=== PATIENT | female | born 1965 | race Caucasian/White ===

== ENCOUNTER 2017-08-26 09:15 | Emergency (ER) | payer OTHER ==
[~2017-08-26] VITALS: Ht 165.1 cm; Wt 107.5 kg
[2017-08-26] MEDS ORDERED: MORPHINE SULFATE 4 MG/ML SYR IV STA (09:55)
[2017-08-26] MEDS ORDERED: SODIUM CHLORIDE 0.9% 1000ML 1,000 ML IV STA (09:55)
[2017-08-26] MEDS ORDERED: ONDANSETRON HCL 4 MG ORAL DISINTEGRATING TAB PO ONE (10:00)
[2017-08-26] MEDS ORDERED: MORPHINE SULFATE 2 MG/ML SYR ONE (10:03)
[2017-08-26 10:06] LABS: BASOPHILS # (AUTO) 0.1 (0.0-0.1); BASOPHILS % 1.2 % (0.0-1.0); EOSINOPHILS # (AUTO) 0.2 (0.0-0.4); EOSINOPHILS % 2.3 % (0.0-6.0); HEMATOCRIT 40.5 % (34.2-44.1); HEMOGLOBIN 13.1 g/dL (12.0-16.0); LYMPHOCYTES # (AUTO) 1.4 (1.0-3.2); LYMPHOCYTES % 18.5 % (18.0-39.1); MEAN CORPUSCULAR HEMOGLOBIN 29.4 pg (28-32); MEAN CORPUSCULAR HGB CONC 32.3 g/dL (31-35); MEAN CORPUSCULAR VOLUME 90.8 fL (81-99); MONOCYTES # (AUTO) 0.6 (0.2-0.8); MONOCYTES % 7.9 % (4.4-11.3); NEUTROPHILS # (AUTO) 5.3 (2.1-6.9); NEUTROPHILS % 68.7 % (38.7-80.0); PLATELET COUNT 227 x10e3/uL (140-360); RED BLOOD COUNT 4.46 x10e6/uL (3.6-5.1); RED CELL DISTRIBUTION WIDTH 14.5 % (11.7-14.4)
[2017-08-26 10:09] LABS: BILIRUBIN,URINE NEGATIVE (NEGATIVE); CLARITY,URINE CLOUDY (CLEAR); COLOR,URINE YELLOW (YELLOW); KETONES,URINE NEGATIVE (NEGATIVE); LEUKOCYTE ESTERASE ,URINE NEGATIVE (NEGATIVE); NITRITE,URINE NEGATIVE (NEGATIVE); PROTEIN,URINE DIPSTICK NEGATIVE (NEGATIVE); URINE UROBILINOGEN 0.2 mg/dL (0.2 - 1)
[2017-08-26 10:20] LABS: ALBUMIN 4.1 g/dL (3.5-5.0); ALBUMIN/GLOBULIN RATIO 1.1 (0.8-2.0); ANION GAP 12.5 mmol/L (8-16); CALCIUM 9.5 mg/dL (8.4-10.2); CREATININE, SERUM 1.08 mg/dL (0.57-1.11); POTASSIUM 3.5 mmol/L (3.5-5.1)
[2017-08-26 10:24] LABS: EPITHELIAL CELLS,URINE RARE /LPF; RBC,URINE >50 /HPF (0-5)
[2017-08-26] MEDS ORDERED: KETOROLAC TROMETHAMINE 30 MG/ML VIAL IV STA (10:26)
--- NOTE | 2017-08-26 10:29 | Diagnostic Imaging Report ---
PROCEDURE: CT ABDOMEN AND PELVIS WITHOUT CONTRAST COMPARISON:None. INDICATIONS:Right flank pain TECHNIQUE: Stone protocol Volumetric CT abdomen and pelvis. No intravenous or enteric contrast. Multiplanar reformatted images. DLP: 786.51 FINDINGS: Clear lung bases. No pleural effusions. Normal heart size. Liver: Normal Gallbladder: Cholecystectomy. The bile duct dilation. Pancreas: Normal Spleen: Normal Adrenal glands: Normal Urinary bladder: Normal Uterus and adnexa: Normal Right kidney: 0.5 x 0.4 cm stone at the distal right ureter about 4 cm from the ureterovesicular junction. Resulting mild right hydronephrosis. No additional stones. Left kidney: Nonobstructive 0.3 cm stone in the mid segment (image 68, series 301). Normal ureter. Bowel: Normal caliber. Normal appendix. Mild proximal sigmoid diverticulosis. Peritoneum: Normal Vasculature: Normal caliber Lymph nodes: Normal Skeleton: Intact. Soft tissues: Normal CONCLUSION: 1. 0.5 cm distal right ureteral stone with resulting ureteral obstruction. 2. Nonobstructive left nephrolithiasis. Dictated by: Galileo Mejia M.D. on 08/26/2017 at 10:31 Electronically approved by: Galileo Mejia M.D. on 08/26/2017 at 10:31
[2017-08-26] MEDS ORDERED: HYDROMORPHONE 1MG/1ML INJ IV STA (10:36)
[2017-08-26] MEDS ORDERED: HYDROMORPHONE 2MG/ML INJ IV NR (10:45)
[2017-08-26 12:37] VITALS: BP 128/75
== END 2017-08-26 12:00 | disposition home or self-care (01) ==
LOC: ER 09:15
DX: N13.2 Hydronephrosis with renal and ureteral calculous obstruction (principal)
CPT/HCPCS: 36415; 74176; 80053; 81001; 85025; 99284; J1170; J1885; J2270; J7030

== ENCOUNTER 2017-10-14 19:23 | Inpatient (IN) | payer OTHER ==
[~2017-10-14] VITALS: Ht 165.1 cm; Wt 106.1 kg
[2017-10-14] MEDS ORDERED: SODIUM CHLORIDE 0.9% 1000ML 1,000 ML IV STA (20:13)
[2017-10-14] MEDS ORDERED: ACETAMINOPHEN 325 MG TAB PO ONE (20:30)
[2017-10-14] MEDS ORDERED: VANCOMYCIN 1GM/NS 250 ML 250 ML IV STA (20:30)
[2017-10-14] MEDS ORDERED: CEFEPIME HCL 2 GM VIAL IV SCH (21:00)
[2017-10-14 21:43] LABS: BASOPHILS # (AUTO) 0.1 (0.0-0.1); BASOPHILS % 0.5 % (0.0-1.0); EOSINOPHILS # (AUTO) 0.1 (0.0-0.4); EOSINOPHILS % 0.7 % (0.0-6.0); HEMATOCRIT 34.1 % (34.2-44.1); HEMOGLOBIN 11.2 g/dL (12.0-16.0); LYMPHOCYTES # (AUTO) 1.2 (1.0-3.2); LYMPHOCYTES % 8.2 % (18.0-39.1); MEAN CORPUSCULAR HEMOGLOBIN 28.9 pg (28-32); MEAN CORPUSCULAR HGB CONC 32.8 g/dL (31-35); MEAN CORPUSCULAR VOLUME 87.9 fL (81-99); MONOCYTES # (AUTO) 1.3 (0.2-0.8); MONOCYTES % 8.8 % (4.4-11.3); NEUTROPHILS # (AUTO) 12.1 (2.1-6.9); NEUTROPHILS % 81.2 % (38.7-80.0); PLATELET COUNT 214 x10e3/uL (140-360); RED BLOOD COUNT 3.88 x10e6/uL (3.6-5.1); RED CELL DISTRIBUTION WIDTH 13.4 % (11.7-14.4)
[2017-10-14 21:50] LABS: CLARITY,URINE CLOUDY (CLEAR); COLOR,URINE ORANGE (YELLOW)
[2017-10-14 21:51] LABS: BACTERIA,URINE MANY /HPF; BILIRUBIN,URINE NEGATIVE (NEGATIVE); EPITHELIAL CELLS,URINE FEW /LPF; KETONES,URINE NEGATIVE (NEGATIVE); LEUKOCYTE ESTERASE ,URINE TRACE (NEGATIVE); MUCUS,URINE FEW (RARE); NITRITE,URINE POSITIVE (NEGATIVE); PROTEIN,URINE DIPSTICK 2+ (NEGATIVE); RBC,URINE 21-50 /HPF (0-5); URINE UROBILINOGEN 1 mg/dL (0.2 - 1)
[2017-10-14 21:52] LABS: INR 1.1; PROTHROMBIN TIME 13.4 seconds (11.9-14.5)
[2017-10-14 21:53] LABS: PARTIAL THROMBOPLASTIN TIME 28.1 seconds (23.8-35.5)
[2017-10-14 22:00] LABS: ALBUMIN 3.3 g/dL (3.5-5.0); ALBUMIN/GLOBULIN RATIO 0.9 (0.8-2.0); ANION GAP 13.4 mmol/L (8-16); CALCIUM 9.1 mg/dL (8.4-10.2); CREATININE, SERUM 1.22 mg/dL (0.57-1.11); MAGNESIUM 1.7 MG/DL (1.3-2.1); POTASSIUM 3.4 mmol/L (3.5-5.1)
[2017-10-14 22:19] LABS: CREATINE KINASE MB 0.4 ng/mL (0-5.0)
--- NOTE | 2017-10-14 22:51 | Diagnostic Imaging Report ---
CHEST SINGLE (PORTABLE), 10/14/2017 8:13 PM Technique: CHEST SINGLE (PORTABLE) Comparison: None available. Clinical history: Fever Findings: Mild right basilar/infrahilar opacity. Otherwise unremarkable portable appearance of the heart, mediastinum, lungs and pleural spaces. Impression: Mild right basilar/infrahilar opacity which may reflect atelectasis or developing infection. Recommend follow-up upright PA and lateral. Signed by: Dr Laura Colon MD on 10/14/2017 10:47 PM
--- NOTE | 2017-10-14 23:00 | Diagnostic Imaging Report ---
EXAM: CT ABDOMEN/PELVIS WO DATE: 10/14/2017 8:35 PM INDICATION: Fever status post stent removal, also reports burning with urination, urinalysis positive COMPARISON: None TECHNIQUE: The abdomen and pelvis were scanned using a multidetector helical scanner. Coronal and sagittal reformations were obtained. Routine protocol performed. IV Contrast: 0 ml Isovue 300/370 FINDINGS: Lack of IV contrast decreases sensitivity in evaluating abdominal and pelvic organs. LOWER THORAX: Mild right greater than left bibasilar opacity, favor atelectasis/scarring. LIVER/BILIARY: No masses. No ductal dilatation. GALLBLADDER: Not visualized SPLEEN: Unremarkable PANCREAS: Unremarkable ADRENALS: No nodules KIDNEYS: The renal parenchyma is suboptimally assessed without IV contrast. There is marked left perinephric and periureteral stranding. Mild bilateral pelvocaliectasis and ureterectasis with likely urothelial thickening. No stones. GI TRACT: No wall thickening or evidence of obstruction. VESSELS: Unremarkable PERITONEUM/RETROPERITONEUM: No free air or fluid LYMPH NODES: No lymphadenopathy REPRODUCTIVE ORGANS/BLADDER: Tiny focus of gas in the bladder which may be related to recent catheterization. SOFT TISSUES: Bilateral breast implants are noted. BONES: Multilevel degenerative changes. IMPRESSION: Somewhat degraded by lack of IV contrast Findings most compatible with left pyelonephritis given history. Bilateral pyelitis, which may be infectious and/or related to recent stent removal. Signed by: Dr Laura Colon MD on 10/14/2017 10:57 PM
[2017-10-14] MEDS ORDERED: MEROPENEM 1 GM VIAL ONE (23:40)
[2017-10-14] MEDS: MEROPENEM 1GRAM 1 GM in SODIUM CHLORIDE 0.9% 100 ML 100 ML IV SCH (23:41)
[2017-10-14] MEDS ORDERED: SODIUM CHLORIDE 0.9% 100 ML ONE (23:45)
[2017-10-15] MEDS: ONDANSETRON HCL INJ 2 MG/ML VIAL IV PRN ×3 (00:59→17:24)
[2017-10-15] MEDS: ACETAMINOPHEN 325 MG TAB PO PRN ×2 (01:04→18:33)
[2017-10-15] MEDS: SODIUM CHLORIDE 0.9% 1000ML 1,000 ML IV SCH ×3 (01:48→23:00)
[2017-10-15] MEDS: MORPHINE SULFATE 2 MG/ML SYR IV PRN ×3 (01:54→17:24)
[2017-10-15] MEDS ORDERED: IBUPROFEN 400 MG TAB PO ONE (03:15)
[2017-10-15] MEDS ORDERED: MEROPENEM 1 GM VIAL ONE ×3 (05:39→20:49)
[2017-10-15] MEDS ORDERED: SODIUM CHLORIDE 0.9% 100 ML ONE (05:40)
[2017-10-15 06:00] LABS: BASOPHILS % 0.4 % (0.0-1.0); EOSINOPHILS % 0.4 % (0.0-6.0); HEMATOCRIT 32.9 % (34.2-44.1); HEMOGLOBIN 10.5 g/dL (12.0-16.0); LYMPHOCYTES # (AUTO) 0.9 (1.0-3.2); LYMPHOCYTES % 8.8 % (18.0-39.1); MEAN CORPUSCULAR HEMOGLOBIN 28.8 pg (28-32); MEAN CORPUSCULAR HGB CONC 31.9 g/dL (31-35); MEAN CORPUSCULAR VOLUME 90.1 fL (81-99); MONOCYTES # (AUTO) 1.2 (0.2-0.8); MONOCYTES % 10.8 % (4.4-11.3); NEUTROPHILS # (AUTO) 8.5 (2.1-6.9); NEUTROPHILS % 78.9 % (38.7-80.0); PLATELET COUNT 195 x10e3/uL (140-360); RED BLOOD COUNT 3.65 x10e6/uL (3.6-5.1); RED CELL DISTRIBUTION WIDTH 13.6 % (11.7-14.4)
[2017-10-15] MEDS: MEROPENEM 1GRAM 1 GM in SODIUM CHLORIDE 0.9% 100 ML 100 ML IV SCH ×3 (06:36→21:25)
[2017-10-15 06:37] LABS: ALBUMIN 2.9 g/dL (3.5-5.0); ALBUMIN/GLOBULIN RATIO 0.8 (0.8-2.0); ANION GAP 9.5 mmol/L (8-16); CALCIUM 8.3 mg/dL (8.4-10.2); CREATININE, SERUM 1.1 mg/dL (0.57-1.11); POTASSIUM 3.5 mmol/L (3.5-5.1)
[2017-10-15] MEDS ORDERED: TYLENOL # 31 EA PO (07:01)
[2017-10-15] MEDS ORDERED: ZONISAMIDE50 MG PO (07:01)
[2017-10-15] MEDS ORDERED: OXYBUTYNIN CHLOR5 MG PO (07:01)
[2017-10-15] MEDS ORDERED: ZOFRAN ODT4 MG SL (07:01)
[2017-10-15] MEDS ORDERED: SYNTHROID100 MCG PO (07:01)
[2017-10-15] MEDS ORDERED: OXYBUTYNIN CHLORIDE 5 MG TAB PO PRN (07:45)
[2017-10-15] MEDS ORDERED: ACETAMINOPHEN/CODEINE 300MG - 30MG TAB PO PRN (07:45)
[2017-10-15] MEDS ORDERED: ONDANSETRON HCL 4 MG ORAL DISINTEGRATING TAB SL PRN (07:45)
--- NOTE | 2017-10-15 08:22 | History and Physical ---
CHIEF COMPLAINT: Vomiting, fever and recent ureteral stent removal. HISTORY OF PRESENT ILLNESS: The patient is a 52-year-old woman. She has a history of thyroid disease and recurrent kidney stones. She had bilateral stents placed by Dr. Benitez. One of the stents was removed on Friday. The next day she developed some fever. She subsequently developed vomiting and pain, and came to the emergency department. PAST SURGICAL HISTORY: Ureteral stent placement. PAST MEDICAL HISTORY 1. Recurrent nephrolithiasis. 2. Thyroid disease. SOCIAL HISTORY: The patient never smoked. The patient is not an active drinker. FAMILY HISTORY: Noncontributory. ALLERGIES: THERE ARE NO KNOWN DRUG ALLERGIES. REVIEW OF SYSTEMS: The patient does have some chronic headaches. She has no neck pain. She has no sore throat. She does not have dyspnea. She has a mild cough. She has no chest pain. She did have some nausea and vomiting. She has no leg edema. PHYSICAL EXAMINATION VITALS: The patient is afebrile. Her temperature was 102.7 last night. HEENT: Shows no facial swelling or erythema. The nasal mucosa is normal. The oropharynx is normal. LYMPHATICS: Shows no submandibular, submucosa or supraclavicular adenopathy. NECK: Shows no JVD or thyromegaly. There is no nuchal rigidity. CARDIAC: Reveals a regular rate and rhythm with normal S1 and S2. There are no murmurs or rubs. LUNGS: Auscultation reveals rhonchus breath sounds. There is no wheezing. ABDOMEN: Soft and nontender. There is no rebound or guarding. EXTREMITIES: Shows no leg edema or cellulitis. There is no cyanosis or clubbing. SKIN: Shows no rashes. NEUROLOGICAL: Shows no focal abnormalities. IMPRESSION 1. Pyelonephritis. 2. Right-sided atelectasis of the lung probably related to prior anesthesia. PLAN 1. The patient will receive IV antibiotics. 2. IV fluids and antiemetics. 3. Repeat PA and lateral chest x-ray. 4. Urology evaluation. Job#: [id number] [place]
--- NOTE | 2017-10-15 08:38 | Diagnostic Imaging Report ---
PROCEDURE: X-RAY CHEST, TWO VIEWS COMPARISON: 10/14/2017. INDICATIONS: RIGHT LUNG ATELECTASIS, ABNORMAL CXR 10/14/17 FINDINGS: The lungs are well expanded. No focal airspace consolidation, pleural effusion, or pneumothorax. Presumed subsegmental atelectasis in the right lung base has resolved. Cardiomediastinal contour and pulmonary vasculature are within normal limits. No acute osseous abnormality. Mild degenerative disc changes of the thoracic spine. CONCLUSION: No acute cardiopulmonary abnormality. Previously described right lung base airspace opacity likely represented atelectasis. Dictated by: Rafael Lomeli M.D. on 10/15/2017 at 8:42 Electronically approved by: Rafael Lomeli M.D. on 10/15/2017 at 8:42
[2017-10-15] MEDS: IBUPROFEN 400 MG TAB PO PRN ×2 (08:41→23:01)
[2017-10-15] MEDS: ZONISAMIDE 50 MG CAP PO SCH (08:46)
[2017-10-15 13:00] VITALS: BP 125/71
[2017-10-15 13:34] VITALS: BP 119/55
[2017-10-15 16:20] VITALS: BP 128/60
[2017-10-15 20:00] VITALS: BP 138/57
[2017-10-16] VITALS (9 sets, daily range): BP systolic 100–173; BP diastolic 58–77
[2017-10-16 04:45] LABS: BASOPHILS # (AUTO) 0.1 (0.0-0.1); BASOPHILS % 0.5 % (0.0-1.0); EOSINOPHILS # (AUTO) 0.1 (0.0-0.4); EOSINOPHILS % 0.9 % (0.0-6.0); HEMATOCRIT 30.5 % (34.2-44.1); HEMOGLOBIN 9.8 g/dL (12.0-16.0); LYMPHOCYTES # (AUTO) 1.3 (1.0-3.2); LYMPHOCYTES % 8.4 % (18.0-39.1); MEAN CORPUSCULAR HEMOGLOBIN 29.3 pg (28-32); MEAN CORPUSCULAR HGB CONC 32.1 g/dL (31-35); MONOCYTES # (AUTO) 1.5 (0.2-0.8); MONOCYTES % 9.6 % (4.4-11.3); NEUTROPHILS # (AUTO) 12.1 (2.1-6.9); PLATELET COUNT 189 x10e3/uL (140-360); RED BLOOD COUNT 3.35 x10e6/uL (3.6-5.1); RED CELL DISTRIBUTION WIDTH 13.4 % (11.7-14.4)
[2017-10-16 05:10] LABS: ALBUMIN 2.5 g/dL (3.5-5.0); ALBUMIN/GLOBULIN RATIO 0.7 (0.8-2.0); ANION GAP 10.8 mmol/L (8-16); CALCIUM 8.4 mg/dL (8.4-10.2); CREATININE, SERUM 1.01 mg/dL (0.57-1.11); POTASSIUM 3.8 mmol/L (3.5-5.1)
[2017-10-16] MEDS ORDERED: MEROPENEM 1 GM VIAL ONE (05:16)
[2017-10-16] MEDS: MEROPENEM 1GRAM 1 GM in SODIUM CHLORIDE 0.9% 100 ML 100 ML IV SCH (05:32)
[2017-10-16] MEDS: LEVOTHYROXINE SODIUM 100 MCG TAB PO SCH (05:32)
[2017-10-16] MEDS: ACETAMINOPHEN 325 MG TAB PO PRN ×2 (05:33→15:08)
[2017-10-16] MEDS: ONDANSETRON HCL INJ 2 MG/ML VIAL IV PRN (06:48)
[2017-10-16] MEDS: MORPHINE SULFATE 2 MG/ML SYR IV PRN (06:48)
[2017-10-16] MEDS: ZONISAMIDE 50 MG CAP PO SCH (08:37)
[2017-10-16] MEDS: MEROPENEM 1 GM VIAL IV SCH ×2 (13:37→21:35)
[2017-10-16] MEDS: SODIUM CHLORIDE 0.9% 1000ML 1,000 ML IV SCH ×2 (13:37→21:34)
[2017-10-16] MEDS ORDERED: MORPHINE SULFATE INJ 4 MG/ML INJ IV PRN (17:00)
[2017-10-16] MEDS: IBUPROFEN 400 MG TAB PO PRN (21:37)
[2017-10-17] VITALS: BP 107/64
[2017-10-17 04:00] VITALS: BP 130/67
[2017-10-17 04:43] LABS: BASOPHILS # (AUTO) 0.1 (0.0-0.1); BASOPHILS % 0.7 % (0.0-1.0); EOSINOPHILS # (AUTO) 0.2 (0.0-0.4); EOSINOPHILS % 2.2 % (0.0-6.0); HEMATOCRIT 29.3 % (34.2-44.1); HEMOGLOBIN 9.2 g/dL (12.0-16.0); LYMPHOCYTES # (AUTO) 1.5 (1.0-3.2); LYMPHOCYTES % 17.3 % (18.0-39.1); MEAN CORPUSCULAR HGB CONC 31.4 g/dL (31-35); MEAN CORPUSCULAR VOLUME 92.4 fL (81-99); MONOCYTES # (AUTO) 0.8 (0.2-0.8); MONOCYTES % 9.1 % (4.4-11.3); PLATELET COUNT 197 x10e3/uL (140-360); RED BLOOD COUNT 3.17 x10e6/uL (3.6-5.1); RED CELL DISTRIBUTION WIDTH 13.2 % (11.7-14.4)
[2017-10-17 04:59] LABS: ANION GAP 11.4 mmol/L (8-16); BLOOD UREA NITROGEN 9 mg/dL (7-26); BUN/CREATININE RATIO 11 (6-25); CALCIUM 8.5 mg/dL (8.4-10.2); CARBON DIOXIDE 24 mmol/L (22-29); CHLORIDE 109 mmol/L (98-107); CREATININE, SERUM 0.82 mg/dL (0.57-1.11); EST GLOMERULAR FILTRATION RATE > 60 ML/MIN (60-); GLUCOSE 98 mg/dL (74-118); POTASSIUM 3.4 mmol/L (3.5-5.1); SODIUM 141 mmol/L (136-145)
[2017-10-17] MEDS: SODIUM CHLORIDE 0.9% 1000ML 1,000 ML IV SCH (06:21)
[2017-10-17] MEDS: MEROPENEM 1 GM VIAL IV SCH (06:22)
[2017-10-17] MEDS: LEVOTHYROXINE SODIUM 100 MCG TAB PO SCH (06:22)
[2017-10-17 07:40] VITALS: BP 142/80
[2017-10-17] MEDS: ZONISAMIDE 50 MG CAP PO SCH (08:09)
[2017-10-17 08:30] VITALS: BP 142/80
[2017-10-17 12:13] VITALS: BP 159/70
[2017-10-17] MEDS ORDERED: AMPICILLIN SOD 1 GM/NS 50ML 50 ML IV SCH (18:00)
== END 2017-10-17 15:13 | disposition home or self-care (01) | DRG 872 ==
LOC: ER 19:23 → ERHOLD 23:22 → MED/SURG3 10-15 12:41
PROVIDERS: ADMIT Internal Medicine Critical Care Medicine; ATTEND Internal Medicine Critical Care Medicine
DX: A41.9 Sepsis, unspecified organism (principal); N10 Acute pyelonephritis; J98.11 Atelectasis; N17.9 Acute kidney failure, unspecified; R65.20 Severe sepsis without septic shock; E03.9 Hypothyroidism, unspecified; Z87.442 Personal history of urinary calculi; E87.6 Hypokalemia; E66.9 Obesity, unspecified; Z68.38 Body mass index [BMI] 38.0-38.9, adult
CPT/HCPCS: 36415; 71045; 71046; 74176; 80048; 80053; 81001; 82550; 82553; 83605; 83735; 84484; 85025; 85610; 85730; 87040; 87086; 87186; 99284; J0290; J0692; J2185; J2270; J2405; J3370; J7030; J7050

== ENCOUNTER → 2021-03-09 | Outpatient (CLI) | payer OTHER ==
[~2021-03-09] MED LIST: OXYBUTYNIN CHLOR5 MG PO; SYNTHROID100 MCG PO; TYLENOL # 31 EA PO; ZOFRAN ODT4 MG SL; ZONISAMIDE50 MG PO
== END ==
LOC: CT 15:55
PROVIDERS: ATTEND Urology
DX: N20.0 Calculus of kidney (principal)
CPT/HCPCS: 74176

== ENCOUNTER → 2021-03-23 | Day surgery (SDC) | payer OTHER ==
[2021-03-21 11:34] LABS: BASOPHILS # (AUTO) 0.1 (0.0-0.1); EOSINOPHILS # (AUTO) 0.1 (0.0-0.4); EOSINOPHILS % 1.8 % (0.0-6.0); HEMATOCRIT 39.8 % (34.2-44.1); HEMOGLOBIN 12.2 g/dL (12.0-16.0); LYMPHOCYTES # (AUTO) 1.5 (1.0-3.2); LYMPHOCYTES % 18.7 % (18.0-39.1); MEAN CORPUSCULAR HEMOGLOBIN 28.9 pg (28-32); MEAN CORPUSCULAR HGB CONC 30.7 g/dL (31-35); MEAN CORPUSCULAR VOLUME 94.3 fL (81-99); MONOCYTES # (AUTO) 0.3 (0.2-0.8); MONOCYTES % 4.4 % (4.4-11.3); NEUTROPHILS # (AUTO) 5.7 (2.1-6.9); NEUTROPHILS % 73.2 % (38.7-80.0); PLATELET COUNT 267 x10e3/uL (140-360); RED BLOOD COUNT 4.22 x10e6/uL (3.6-5.1); RED CELL DISTRIBUTION WIDTH 13.4 % (11.7-14.4)
[2021-03-21 11:55] LABS: ANION GAP 13.7 mmol/L (8-16); CALCIUM 8.9 mg/dL (8.4-10.2); CREATININE, SERUM 0.95 mg/dL (0.57-1.11); POTASSIUM 3.7 mmol/L (3.5-5.1)
[~2021-03-23] MED LIST changes: +BELLADONNA/OPIUM 30 MG SUPP RC ONE; +DEXAMETHASONE SOD PHOS INJ 4 MG/ML SDV ONE; +FENTANYL CITRATE/PF 100MCG/2 ML INJ ONE; +IOPAMIDOL 300MG/ML 50ML INFUS..BTL IV ONE; +KETOROLAC TROMETHAMINE 30 MG/ML VIAL ONE; +LIDOCAINE HCL 2% LOCAL INJ 5 ML SDV VIAL INJ ONE; +MIDAZOLAM HCL 2 MG/2 ML VIAL ONE; +ONDANSETRON HCL INJ 2MG/ML 2ML 2 MG/ML VIAL ONE; +POVIDONE IODINE 0.05% 0.05 % ML PO ONE; +PROPOFOL IV EMULSION 10 MG/ML 20 ML VIAL ONE; +SEVOFLURANE INHAL SOLN 250 ML PEN BTL ONE
[2021-03-23] MEDS: GENTAMICIN 80MG/NS 100 ML 200 ML IV ONE (09:17)
[2021-03-23] MEDS: FENTANYL CITRATE/PF 100MCG/2 ML INJ ONE (11:14)
[2021-03-23] MEDS: ACETAMINOPHEN/CODEINE 300MG - 30MG TAB ONE (11:34)
[2021-03-23] MEDS: METOCLOPRAMIDE HCL 10 MG/2ML VIAL ONE (11:44)
[2021-03-23] MEDS: ONDANSETRON HCL INJ 2MG/ML 2ML 2 MG/ML VIAL ONE (11:44)
[2021-03-23 12:15] VITALS: BP 135/76
== END | disposition home or self-care (01) ==
LOC: OR 08:20
PROVIDERS: ATTEND Urology
DX: N20.0 Calculus of kidney (principal); N20.1 Calculus of ureter; N13.30 Unspecified hydronephrosis; N39.0 Urinary tract infection, site not specified; N36.41 Hypermobility of urethra; N81.6 Rectocele; N81.89 Other female genital prolapse; R35.1 Nocturia; G47.33 Obstructive sleep apnea (adult) (pediatric); I49.3 Ventricular premature depolarization; I45.10 Unspecified right bundle-branch block; G43.909 Migraine, unspecified, not intractable, without status migrainosus; E03.9 Hypothyroidism, unspecified; K21.9 Gastro-esophageal reflux disease without esophagitis; E66.9 Obesity, unspecified; Z01.810 Encounter for preprocedural cardiovascular examination; Z01.812 Encounter for preprocedural laboratory examination; Z01.818 Encounter for other preprocedural examination; Z20.822 Contact with and (suspected) exposure to COVID-19; Z79.899 Other long term (current) drug therapy; Z68.39 Body mass index [BMI] 39.0-39.9, adult
CPT/HCPCS: 36415; 50590; 74018; 80048; 83970; 84550; 85025; 93005; J1100; J1580; J1885; J2001; J2250; J2405; J2765; J3010; U0002